=== PATIENT | female | born 1995 | race Caucasian/White ===

== ENCOUNTER 2022-07-12 21:42 | Emergency (ER) | payer BC ==
[~2022-07-12] VITALS: Ht 165.1 cm; Wt 71.3 kg
[2022-07-12 21:53] VITALS: BP 108/60
--- NOTE | 2022-07-12 21:57 | NUR ---
PT TO LOBBY WAITING FOR BED
--- NOTE | 2022-07-12 22:46 | NUR ---
KATHARINEN UNABLE TO PROVIDE URINE AT THIS TIME.
--- NOTE | 2022-07-12 23:26 | NUR ---
PATIENT UNABLE TO URINATE AT THIS TIME. STATED SHE WILL ATTEMPT LATER
[2022-07-12] MEDS ORDERED: METOCLOPRAMIDE 10 MG TAB PO ONE (23:40)
--- NOTE | 2022-07-12 23:47 | NUR ---
LABS DRAWN BY EVA IN TRIAGE.
--- NOTE | 2022-07-12 23:51 | NUR ---
PT UNABLE TO GIVE URINE AT THIS TIME.
[2022-07-12 23:59] LABS: BASOPHILS % (AUTO) 0.3 % (0.0-2.0); EOSINOPHILS % (AUTO) 0.2 % (0.0-4.0); HEMATOCRIT 40.6 % (36-48); LYMPHOCYTES # (AUTO) 1.5 K/uL (2.5-16.5); LYMPHOCYTES % (AUTO) 13.9 % (20.5-51.1); MEAN CORPUSCULAR HEMOGLOBIN 30 pg (27-31); MEAN CORPUSCULAR HGB CONC 35 g/dL (33-37); MEAN CORPUSCULAR VOLUME 86.8 fL (80-94); MONOCYTES # (AUTO) 0.6 K/uL (0.8-1.0); MONOCYTES % (AUTO) 5.5 % (1.7-9.3); NEUTROPHILS # (AUTO) 8.9 K/uL (1.8-7.7); NEUTROPHILS % (AUTO) 80.1 % (42.2-75.2); PLATELET COUNT (AUTO) 259 K/uL (140-450); RED BLOOD CELL COUNT(AUTO) 4.68 MIL/uL (4.20-5.40); RED CELL DISTRIBUTION WIDTH 12.9 % (11.6-13.7); WHITE BLOOD COUNT (AUTO) 11.2 K/uL (4.8-10.8)
[2022-07-13 00:29] LABS: ALBUMIN 3.6 g/dL (3.4-5.0); ANION GAP 16.9 (8-16); CARBON DIOXIDE 22.1 mmol/L (21-32); CREATININE 0.7 mg/dL (0.6-1.3); TOTAL BILIRUBIN 0.6 mg/dL (0.0-1.0)
--- NOTE | 2022-07-13 00:46 | NUR ---
PT TAKEN TO BED #7 FROM [facility]
--- NOTE | 2022-07-13 00:52 | NUR ---
Patient resting comfortably in bed, chest rise and fall symmetrical, patient is a/ox4, no c/o pain or s/s of discomfort at this time per patient stated. Addendum: 07/13/22 at 0053 by [id number] Patient resting comfortably in bed, chest rise and fall symmetrical, patient is a/ox4. Patient stated "no pain right now".
--- NOTE | 2022-07-13 01:12 | NUR ---
Patient being evaluated by physician at bedside.
--- NOTE | 2022-07-13 02:15 | NUR ---
Patient resting comfortably in bed, chest rise and fall symmetrical, patient is a/ox4, no c/o pain or s/s of discomfort at this time per patient stated.
[2022-07-13] MEDS ORDERED: POTASSIUM CHLORIDE 10 MEQ TABER PO ONE (02:20)
[2022-07-13] MEDS ORDERED: DOXY1TCP PO (02:21)
[2022-07-13 03:25] LABS: APPEARANCE,URINE SL CLOUDY (CLEAR); BILIRUBIN,URINE NEGATIVE (NEGATIVE); BLOOD, URINE NEGATIVE (NEGATIVE); COLOR,URINE YELLOW (YELLOW); LEUKOCYTE ESTERASE ,URINE NEGATIVE (NEGATIVE); NITRITE, URINE NEGATIVE (NEGATIVE); UGLUCOSE NEGATIVE (NEGATIVE)
[2022-07-13] MEDS ORDERED: METOCLOPRAMIDE 10 MG TAB PO SCH (03:35)
[2022-07-13] MEDS: METOCLOPRAMIDE 10 MG TAB PO SCH ×2 (03:53→03:55)
[2022-07-13 04:21] VITALS: BP 115/78
--- NOTE | 2022-07-13 04:21 | NUR ---
Patient resting comfortably in bed, chest rise and fall symmetrical, patient is a/ox4, no c/o pain or s/s of discomfort at this time per patient stated.
[2022-07-13] MEDS ORDERED: METO-485 PO (04:26)
== END 2022-07-13 04:33 | disposition home or self-care (01) ==
LOC: MED 21:42
DX: O21.0 Mild hyperemesis gravidarum (principal); E87.6 Hypokalemia; Z3A.08 8 weeks gestation of pregnancy
CPT/HCPCS: 36415; 76817; 80053; 81003; 81025; 83690; 84702; 85025; 86900; 86901; 99285; J8597

== ENCOUNTER 2023-06-25 19:02 | Emergency (ER) | payer BC ==
[~2023-06-25] VITALS: Ht 165.1 cm; Wt 76.7 kg
[~2023-06-25 19:02] MED LIST: DOXY1TCP PO; METO-485 PO
[2023-06-25 20:17] VITALS: BP 98/50; PULSE 116; RESP 18; TEMP 99.8; O2SAT 98
[2023-06-25 21:01] LABS: FLU A ANTIGEN negative (NEGATIVE); FLU B ANTIGEN NEGATIVE (NEGATIVE)
[2023-06-25 21:05] LABS: COVID19 ANTIGEN SOFIA FIA NEGATIVE (NEGATIVE)
[2023-06-25] MEDS ORDERED: NACL 0.9% 1,000 ML IV SCH (21:15)
[2023-06-25 21:54] LABS: BASOPHILS % (AUTO) 0.2 % (0.0-2.0); HEMATOCRIT 40.9 % (36-48); HEMOGLOBIN 13.9 g/dL (12.0-16.0); LYMPHOCYTES # (AUTO) 0.9 K/uL (2.5-16.5); LYMPHOCYTES % (AUTO) 5.9 % (20.5-51.1); MEAN CORPUSCULAR HEMOGLOBIN 29 pg (27-31); MEAN CORPUSCULAR HGB CONC 34 g/dL (33-37); MEAN CORPUSCULAR VOLUME 85.8 fL (80-94); MONOCYTES % (AUTO) 7.1 % (1.7-9.3); NEUTROPHILS # (AUTO) 12.6 K/uL (1.8-7.7); NEUTROPHILS % (AUTO) 86.8 % (42.2-75.2); PLATELET COUNT (AUTO) 242 K/uL (140-450); RED BLOOD CELL COUNT(AUTO) 4.77 MIL/uL (4.20-5.40); RED CELL DISTRIBUTION WIDTH 13.9 % (11.6-13.7); WHITE BLOOD COUNT (AUTO) 14.6 K/uL (4.8-10.8)
[2023-06-25] MEDS ORDERED: ONDANSETRON 4 MG ODT PO ONE (22:05)
[2023-06-25] MEDS ORDERED: NACL 0.9% 1,000 ML IV ONE (22:10)
[2023-06-25 22:27] LABS: ALANINE AMINOTRANSFERASE 25 U/L (12-78); ALKALINE PHOSPHATASE 65 U/L (50-136); ANION GAP 15.2 (8-16); ASPARTATE AMINOTRANSFERASE 11 U/L (15-37); CARBON DIOXIDE 25.1 mmol/L (21-32); CHLORIDE 98 mmol/L (98-107); CREATINE KINASE, TOTAL 120 U/L (26-192); GFR ARICAN-AMERICAN 86 mL/min (>90); GFR NON ARICAN-AMERICAN 71 mL/min (>90); GLUCOSE 108 mg/dL (74-106); POTASSIUM 3.3 mmol/L (3.5-5.1); SODIUM SERUM 135 mmol/L (136-145); TOTAL PROTEIN, SERUM 8.4 g/dL (6.4-8.2); UREA NITROGEN, BLOOD 9 mg/dL (7-18)
[2023-06-25 22:30] LABS: APPEARANCE,URINE CLOUDY (CLEAR); BILIRUBIN,URINE 1+ (NEGATIVE); BLOOD, URINE 3+ (NEGATIVE); COLOR,URINE YELLOW (YELLOW); LEUKOCYTE ESTERASE ,URINE TRACE (NEGATIVE); NITRITE, URINE POSITIVE (NEGATIVE); PH,URINE 5.5 (5.0-9.0); PROTEIN,URINE 2+ (NEGATIVE); UGLUCOSE NEGATIVE (NEGATIVE)
[2023-06-25 22:34] LABS: ICTOTEST POSITIVE (NEGATIVE)
[2023-06-25 22:35] LABS: BACTERIA,URINE >30 (MANY) /HPF (None Seen); MUCUS,URINE 1+ /LPF (None Seen); SQUAMOUS EPITHELIAL CELL,UR 0-3 (FEW) /LPF (0-3 (FEW))
[2023-06-25] MEDS ORDERED: CEPH-588 PO (22:53)
[2023-06-25 23:28] VITALS: TEMP 98.6
[2023-06-25 23:41] VITALS: O2SAT 98
[2023-06-25 23:52] VITALS: BP 107/62; PULSE 93; RESP 19; O2SAT 100
== END 2023-06-25 23:45 | disposition home or self-care (01) ==
LOC: MED 19:02
DX: N39.0 Urinary tract infection, site not specified (principal); Z20.822 Contact with and (suspected) exposure to COVID-19; Z79.899 Other long term (current) drug therapy; Z79.2 Long term (current) use of antibiotics
CPT/HCPCS: 36415; 71045; 80053; 81001; 81025; 82550; 83605; 84484; 85025; 87040; 87086; 87426; 87804; 93005; 96360; 99285; J7030; Q0092; Q0162